=== PATIENT | male | born 1980 ===

== ENCOUNTER 2020-03-13 10:22 | Emergency (ER) | payer OTHER, SELFPAY ==
[2020-03-13] MEDS ORDERED: Acetaminophen 500 MG TAB ONE (11:13)
[2020-03-13] MEDS ORDERED: Ibuprofen 200 MG TAB ONE (11:13)
[2020-03-13] MEDS ORDERED: Clindamycin 150 MG CAP ONE (11:15)
== END 2020-03-13 11:35 ==
LOC: ERS 10:22
DX: L03.211 Cellulitis of face (principal); F17.210 Nicotine dependence, cigarettes, uncomplicated

== ENCOUNTER 2021-11-29 22:22 | Inpatient (IN) | payer OTHER, SELFPAY ==
[~2021-11-29 22:22] MED LIST: Iopamidol-370 76% 500 ML 1 ML ONE
[2021-11-29 23:39] LABS: #Basophils 0.1 thou/uL (0.0-0.2); #Eosinphils 0.2 thou/uL (0.0-0.7); #Lymphocytes 2.4 thou/uL (1.20-3.40); #Monocytes 0.9 thou/uL (0.11-0.59); #Neutrophils 9.9 thou/uL (1.40-6.50); %Basophils 0.6 % (0.0-1.0); %Eosinophils 1.7 % (0.0-10.0); %Lymphocytes 17.6 % (21.0-51.0); %Monocytes 6.3 % (0.0-10.0); %Neutrophils 73.7 % (42.0-75.0); Hemoglobin 14.3 g/dL (14.0-18.0); Mean Corpuscular HGB CONC 33.8 g/dL (32.0-36.0); Mean Corpuscular Hemoglobin 31.6 pg (27.0-31.0); Mean Corpuscular Volume 93.3 fL (78.0-98.0); Platelet Count 328 thou/uL (130-400); RBC Distribution Width 11.6 % (11.5-14.5); Red Blood Cell (RBC) Count 4.51 mill/uL (4.70-6.10); White Blood Cell (WBC) Count 13.4 thou/uL (4.8-10.8)
[2021-11-30 00:02] LABS: ALT (SGPT) 21 U/L (8-55); AST (SGOT) 17 U/L (5-34); Albumin 4.1 g/dL (3.5-5.0); Alkaline Phosphatase 97 U/L (40-110); Anion Gap 14 mmol/L (10-20); BUN (Urea Nitrogen) 9 mg/dL (8.9-20.6); Bilirubin, Total 1.2 mg/dL (0.2-1.2); Calc. Creatinine Clearance 0 mL/min (70-130); Calcium 8.9 mg/dL (7.8-10.44); Carbon Dioxide 24 mmol/L (22-29); Chloride 103 mmol/L (98-107); Estimated GFR 111; Globulin 2.7 g/dL (2.4-3.5); Glucose 90 mg/dL (70-105); Lipase 16 U/L (8-78); Potassium 3.8 mmol/L (3.5-5.1); Protein, Total 6.8 g/dL (6.0-8.3); Sodium 137 mmol/L (136-145)
[2021-11-30] MEDS ORDERED: Ondansetron PF 4 MG/2 ML Vial ONE ×2 (02:59→11:12)
[2021-11-30] MEDS ORDERED: Morphine 4 MG/ML VIAL ONE (02:59)
[2021-11-30 03:31] LABS: Bilirubin Negative (Negative); Blood, Urine Negative (Negative); Clarity Clear (Clear); Glucose, Urine (Dipstick) Normal (Negative); Ketone, Urine Negative (Negative); Leukocyte Negative Leu/uL (Negative); Nitrite Negative (Negative); Protein, Urine (Dipstick) Negative (Neg-Trace); Specific Gravity, Urine 1.033 (1.002-1.036); Urobilinogen Normal mg/dL (Less than 2)
[2021-11-30] MEDS ORDERED: Morphine 4 MG/ML VIAL SLOW IVP PRN (04:32)
[2021-11-30] MEDS ORDERED: Ondansetron PF 4 MG/2 ML Vial IVP PRN ×2 (04:45→12:12)
[2021-11-30] MEDS ORDERED: Ondansetron ODT 4 MG TAB SL PRN (04:45)
[2021-11-30] MEDS ORDERED: Acetaminophen 325 MG TAB PO PRN (04:45)
[2021-11-30] MEDS: Sodium Chloride 0.9% 1,000 ML IV SCH ×2 (06:04→15:02)
[2021-11-30 06:26] VITALS: BMI 28.2
[2021-11-30 07:22] LABS: SARS-CoV-2 NAA Rapid Test Not Detected (NotDetected)
[2021-11-30 08:33] VITALS: BP 93/57; TEMP 97.8
[2021-11-30] MEDS ORDERED: EPINEPHrine 1 MG/ML AMP ONE (10:38)
[2021-11-30] MEDS ORDERED: Bupivacaine PF 0.5% 30 ML VIAL ONE (10:38)
[2021-11-30] MEDS ORDERED: fentaNYL Citrate/PF 100 MCG/2 ML SYRINGE ONE (10:57)
[2021-11-30] MEDS ORDERED: PROPOFOL 200 MG/20 ML VIAL ONE (11:12)
[2021-11-30] MEDS ORDERED: Lidocaine 1% PF 5 ML VIAL ONE (11:12)
[2021-11-30] MEDS ORDERED: Dexamethasone 20 MG/5 ML VIAL ONE (11:12)
[2021-11-30] MEDS ORDERED: Glycopyrrolate 0.2 MG/ML 5 ML SYRINGE ONE (11:12)
[2021-11-30] MEDS ORDERED: ePHEDrine 50 MG/ML VIAL ONE (11:12)
[2021-11-30] MEDS ORDERED: Ketorolac Tromethamine 30 MG/ML VIAL ONE (11:12)
[2021-11-30] MEDS ORDERED: Rocuronium Bromide 10 MG/ML (10ML VIAL) ONE (11:12)
[2021-11-30] MEDS ORDERED: cefOXitin 2 GM VIAL ONE (11:37)
[2021-11-30] MEDS ORDERED: Dextrose 5% in Water 1,000 ML IV PRN (12:12)
[2021-11-30] MEDS ORDERED: HYDROcodone/Acetaminophen 10/325 mg Tablet PO PRN (12:12)
[2021-11-30] MEDS ORDERED: Dextrose 50% Abboject 50 ML SYRINGE SLOW IVP PRN (12:12)
[2021-11-30] MEDS ORDERED: hydrALAZINE 20 MG/ML VIAL SLOW IVP PRN (12:12)
[2021-11-30] MEDS ORDERED: Promethazine HCl 25 MG/ML VIAL IM PRN ×2 (12:12→12:24)
[2021-11-30] MEDS ORDERED: Morphine 2 MG/ML VIAL SLOW IVP PRN (12:12)
[2021-11-30] MEDS ORDERED: D5 1/2 NS w/20 mEq KCL 1,000 ML IV SCH (12:15)
[2021-11-30] MEDS ORDERED: HYDROmorphone 2 MG/ML VIAL SLOW IVP PRN (12:24)
[2021-11-30] MEDS ORDERED: Ondansetron HCl/PF 4 MG/2 ML Vial IVP PRN (12:24)
[2021-11-30] MEDS ORDERED: PACU-Morphine 4MG/ML VIAL SLOW IVP PRN (12:24)
[2021-11-30] MEDS ORDERED: Promethazine HCl 25 MG/ML VIAL IVPB PRN (12:24)
[2021-11-30] MEDS ORDERED: Ketorolac Tromethamine 30 MG/ML VIAL IVP SCH (18:00)
== END 2021-11-30 15:55 | DRG 340 ==
LOC: ERS 22:22 → SURG A 11-30 03:20 → ERS 11-30 04:22
PROVIDERS: ADMIT Surgery; ATTEND Surgery
PROC: 0DTJ4ZZ Resection of Appendix, Percutaneous Endoscopic Approach (ICD-10-PCS; principal; 2021-11-30)
DX: K35.33 Acute appendicitis with perforation, localized peritonitis, and gangrene, with abscess (principal); Z20.822 Contact with and (suspected) exposure to COVID-19; F17.210 Nicotine dependence, cigarettes, uncomplicated; Z98.890 Other specified postprocedural states; Z86.018 Personal history of other benign neoplasm
CPT/HCPCS: 36415; 74177; 80053; 81003; 83690; 85025; 88304; 96361; 96374; 96375; A4649; J0171; J0694; J1100; J1885; J2270; J2405; J2704; J2710; J3490; J7050; Q9967; S0020; U0002